=== PATIENT | female | born 1995 | race Caucasian/White ===

== ENCOUNTER 2023-02-18 22:23 | Observation (INO) | payer BC ==
[2023-02-18] MEDS ORDERED: Ondansetron PF 4 MG/2 ML Vial ONE (22:51)
[2023-02-18] MEDS ORDERED: Pantoprazole 40 MG VIAL ONE (22:51)
[2023-02-18] MEDS ORDERED: Sterile Water 0 ML ONE (22:51)
[2023-02-18 23:19] LABS: #Basophils 0.1 10x3/uL (0.0-0.2); #Eosinphils 0.1 10x3/uL (0.0-0.5); #Monocytes 0.9 10x3/uL (0.0-1.1); #Neutrophils 11.8 10x3/uL (1.5-8.4); %Basophils 0.4 % (0.0-2.0); %Eosinophils 0.4 % (0.0-6.0); %Lymphocytes 22.9 % (18.0-47.0); %Monocytes 5.3 % (0.0-10.0); %Neutrophils 70.3 % (40.0-75.0); Hematocrit 39.3 % (34.9-44.5); Hemoglobin 13.9 g/dL (12.0-15.5); Mean Corpuscular HGB CONC 35.4 g/dL (32.0-36.0); Mean Corpuscular Hemoglobin 31.5 pg (27.0-33.0); Mean Corpuscular Volume 89.1 fl (81.6-98.3); Mean Platelet Volume 8.4 fl (7.4-10.4); Platelet Count 279 10x3/uL (150-450); RBC Distribution Width 12.9 % (11.5-14.5); Red Blood Cell (RBC) Count 4.41 10x6/uL (3.90-5.03); White Blood Cell (WBC) Count 16.8 10x3/uL (3.5-10.5)
[2023-02-18 23:31] LABS: BHCG - Serum Negative (NEGATIVE); Pregs Control Background? CLEAR/WHITE (CLR/WHITE); Pregs Control Bar Appear? YES (CONTROL BAR)
[2023-02-18 23:35] LABS: ALT (SGPT) 181 U/L (8-55); AST (SGOT) 247 U/L (5-34); Alkaline Phosphatase 55 U/L (40-110); Anion Gap 17 mmol/L (10-20); BUN (Urea Nitrogen) 11 mg/dL (7.0-18.7); Bilirubin, Total 1.9 mg/dL (0.2-1.2); Calc. Creatinine Clearance 0 mL/min (70-130); Carbon Dioxide 23 mmol/L (22-29); Chloride 102 mmol/L (98-107); Estimated GFR 113; Globulin 2.6 g/dL (2.4-3.5); Glucose 122 mg/dL (70-105); Lipase 68 U/L (8-78); Potassium 3.3 mmol/L (3.5-5.1); Protein, Total 6.6 g/dL (6.0-8.3); Sodium 139 mmol/L (136-145)
[2023-02-18 23:41] LABS: Bilirubin Neg (Negative); Blood, Urine 25 (Negative); Clarity Cloudy (Clear); Glucose, Urine (Dipstick) Normal (Negative); Ketone, Urine Negative (Negative); Leukocyte 100 (Negative); Nitrite Negative (Negative); Protein, Urine (Dipstick) 15 mg/dl (Neg-Trace)
[2023-02-18 23:54] LABS: Bacteria/HPF None Seen HPF (None Seen); CAUTI Indications for Culture Pelvic or flank pain; RBC/HPF 0-3 HPF (0-3); Squamous Epithelial 0-3 HPF (0-3); WBC/HPF 0-3 HPF (0-3)
[2023-02-18] MEDS ORDERED: Ketorolac Tromethamine 30 MG/ML VIAL ONE (23:55)
[2023-02-18 23:56] LABS: Urine Culture Reflex No No
[2023-02-19] MEDS ORDERED: Ondansetron PF 4 MG/2 ML Vial ONE ×2 (00:14→07:33)
[2023-02-19] MEDS ORDERED: LevoFLOXacin 750 mg/D5W 150 ml Premix Bag ONE (02:53)
[2023-02-19] MEDS ORDERED: Ondansetron PF 4 MG/2 ML Vial IVP PRN (04:30)
[2023-02-19] MEDS ORDERED: Sodium Chloride 0.9% 1,000 ML IV SCH (04:30)
[2023-02-19] MEDS ORDERED: Ondansetron ODT 4 MG TAB SL PRN (04:30)
[2023-02-19] MEDS ORDERED: Acetaminophen 325 MG TAB PO PRN (04:30)
[2023-02-19] MEDS ORDERED: Morphine 2 MG/ML VIAL SLOW IVP PRN (04:54)
[2023-02-19] MEDS ORDERED: Morphine 4 MG/ML VIAL SLOW IVP PRN (04:54)
[2023-02-19] MEDS ORDERED: Ketorolac Tromethamine 30 MG/ML VIAL IVP SCH (05:00)
[2023-02-19 05:47] VITALS: BMI 25.3
[2023-02-19] MEDS ORDERED: Dexmedetomidine 200 MCG/2 ML VIAL ONE (07:28)
[2023-02-19] MEDS ORDERED: EPINEPHrine 1 MG/ML VIAL ONE (07:29)
[2023-02-19] MEDS ORDERED: Glucagon 1 MG/ML KIT ONE (07:30)
[2023-02-19] MEDS ORDERED: Bupivacaine PF 0.5% 30 ML VIAL ONE (07:30)
[2023-02-19] MEDS ORDERED: Iopamidol 30 ML ONE (07:30)
[2023-02-19] MEDS ORDERED: FLU VACC QS2023-24(6MOS UP)/PF 60 MCG/0.5 ML SYRINGE IM ONE (07:30)
[2023-02-19] MEDS ORDERED: fentaNYL 50 mcg/mL 1 mL Vial ONE ×2 (07:33→09:20)
[2023-02-19] MEDS ORDERED: Dexamethasone 4 mg/ml Vial ONE (07:33)
[2023-02-19] MEDS ORDERED: Lidocaine 1% PF 5 ML VIAL ONE (07:33)
[2023-02-19] MEDS ORDERED: PROPOFOL 40 ML ONE (07:33)
[2023-02-19] MEDS ORDERED: SUGAMMADEX SODIUM 200 MG/2 ML VIAL ONE (07:42)
[2023-02-19] MEDS ORDERED: Scopolamine 1 mg/72 hour Patch ONE (07:59)
[2023-02-19] MEDS ORDERED: LevoFLOXacin 500 mg/D5W 100 ML BAG ONE (07:59)
[2023-02-19] MEDS ORDERED: traMADol HCl 50 MG TAB PO PRN (08:06)
[2023-02-19] MEDS ORDERED: Ibuprofen 600 MG TAB PO PRN (08:06)
[2023-02-19] MEDS ORDERED: Acetaminophen 500 MG TAB PO PRN (08:06)
[2023-02-19] MEDS ORDERED: Acetaminophen 500 MG TAB PO SCH (08:15)
[2023-02-19] MEDS ORDERED: PHENYLEPHRINE-NS 100 MCG/ML 10 ML SYRINGE ONE (08:27)
[2023-02-19 13:20] VITALS: BP 100/60; TEMP 97.6
== END 2023-02-19 14:23 | disposition home or self-care (01) ==
LOC: CSHERS 22:23 → CSHTELE 02-19 04:02 → INTOOBSV 02-19 04:02
PROVIDERS: ADMIT Specialist; ATTEND Specialist
PROC: 0FT44ZZ Resection of Gallbladder, Percutaneous Endoscopic Approach (ICD-10-PCS; principal; 2023-02-19)
PROC: BF13YZZ Fluoroscopy of Gallbladder and Bile Ducts using Other Contrast (ICD-10-PCS; 2023-02-19)
DX: K80.12 Calculus of gallbladder with acute and chronic cholecystitis without obstruction (principal); F17.290 Nicotine dependence, other tobacco product, uncomplicated; Z88.8 Allergy status to other drugs, medicaments and biological substances; Z90.89 Acquired absence of other organs; Z98.890 Other specified postprocedural states; Z79.899 Other long term (current) drug therapy
CPT/HCPCS: 47532; 76705; 80053; 81001; 83690; 84703; 85025; 88304; 96376; C1889; C9113; G0378; J0171; J1100; J1611; J1885; J1956; J2405; J2704; J3010; J7050; Q9967; S0020

== ENCOUNTER 2024-01-24 08:22 | Emergency (ER) | payer OTHER ==
[2024-01-24] MEDS ORDERED: Ondansetron PF 4 MG/2 ML Vial ONE (08:52)
[2024-01-24 09:02] LABS: Bilirubin Neg (Negative); Blood, Urine 25 (Negative); Clarity Cloudy (Clear); Glucose, Urine (Dipstick) 50 mg/dL (Negative); Ketone, Urine 5 mg/dL (Negative); Leukocyte 500 (Negative); Nitrite Negative (Negative); Protein, Urine (Dipstick) 30 mg/dl (Neg-Trace); Specific Gravity, Urine 1.025 (1.005-1.030)
[2024-01-24 09:07] LABS: #Basophils 0.04 10x3/uL (0.0-0.2); #Eosinophils 0.11 10x3/uL (0.0-0.5); #Monocytes 0.91 10x3/uL (0.0-1.1); #Neutrophils 21.51 10x3/uL (1.5-8.4); %Basophils 0.2 % (0.0-2.0); %Eosinophils 0.5 % (0.0-6.0); %Lymphocytes 4.1 % (18.0-47.0); %Monocytes 3.8 % (0.0-10.0); %Neutrophils 90.9 % (40.0-75.0); Hematocrit 45.2 % (34.9-44.5); Hemoglobin 15.6 g/dL (12.0-15.5); Mean Corpuscular HGB CONC 34.5 g/dL (32.0-36.0); Mean Corpuscular Hemoglobin 31.1 pg (27.0-33.0); Mean Corpuscular Volume 90.2 fL (81.6-98.3); Mean Platelet Volume 8.6 fL (7.4-10.4); Platelet Count 357 10x3/uL (150-450); RBC Distribution Width 11.9 % (11.5-14.5); Red Blood Cell (RBC) Count 5.01 10x6/uL (3.90-5.03); White Blood Cell (WBC) Count 23.7 10x3/uL (3.5-10.5)
[2024-01-24 09:15] LABS: BHCG - Serum Negative (NEGATIVE); Pregs Control Background? CLEAR/WHITE (CLR/WHITE); Pregs Control Bar Appear? YES (CONTROL BAR)
[2024-01-24 09:16] LABS: Bacteria/HPF 4+ HPF (None Seen); CAUTI Indications for Culture Dysuria,urgency,freq; RBC/HPF 0-3 HPF (0-3)
[2024-01-24 09:18] LABS: Urine Culture Reflex Yes Yes
[2024-01-24 09:26] LABS: ALT (SGPT) 22 U/L (8-55); AST (SGOT) 15 U/L (5-34); Albumin 4.2 g/dL (3.5-5.0); Alkaline Phosphatase 69 U/L (40-110); Anion Gap 16 mmol/L (10-20); BUN (Urea Nitrogen) 17 mg/dL (7.0-18.7); Bilirubin, Total 2.1 mg/dL (0.2-1.2); Calc. Creatinine Clearance 0 mL/min (70-130); Calcium 9.2 mg/dL (7.8-10.44); Carbon Dioxide 19 mmol/L (22-29); Chloride 105 mmol/L (98-107); Estimated GFR 92; Globulin 3.4 g/dL (2.4-3.5); Glucose 226 mg/dL (70-105); Lipase 57 U/L (8-78); Potassium 4.3 mmol/L (3.5-5.1); Protein, Total 7.6 g/dL (6.0-8.3); Sodium 136 mmol/L (136-145)
[2024-01-24] MEDS ORDERED: cefTRIAXone (ROCEPHIN) 2 GM VIAL ONE (09:34)
== END 2024-01-24 10:20 | disposition home or self-care (01) ==
LOC: CSHERS 08:22
DX: N39.0 Urinary tract infection, site not specified (principal); F17.290 Nicotine dependence, other tobacco product, uncomplicated
CPT/HCPCS: 36416; 80053; 81001; 83690; 84703; 85025; 87086; 96361; 96365; 96375; J0696; J2405

== ENCOUNTER 2024-03-28 20:26 | Emergency (ER) | payer OTHER, SELFPAY ==
[2024-03-28] MEDS ORDERED: Ketorolac Tromethamine 30 MG (1 mL) VIAL ONE (21:16)
== END 2024-03-28 21:40 | disposition home or self-care (01) ==
LOC: CSHERS 20:26
DX: K11.20 Sialoadenitis, unspecified (principal); E11.9 Type 2 diabetes mellitus without complications; F17.290 Nicotine dependence, other tobacco product, uncomplicated
CPT/HCPCS: 96372; 99283; J1885